=== PATIENT | female | born 2000 | race Caucasian/White ===

== ENCOUNTER 2022-01-06 15:54 | Outpatient (CLI) | payer OTHER, MEDICAID, SELFPAY | END 2022-01-06 15:55 | disposition home or self-care (01) | LOC: NFLDREF 15:55 | PROVIDERS: Visit Provider Obstetrics & Gynecology | DX: Z34.90 Encounter for supervision of normal pregnancy, unspecified, unspecified trimester (principal) | CPT/HCPCS: 84702 ==

== ENCOUNTER 2022-01-08 15:43 | Outpatient (CLI) | payer OTHER, MEDICAID, SELFPAY | END 2022-01-08 15:44 | disposition home or self-care (01) | LOC: NFLDREF 01-09 10:08 | PROVIDERS: Visit Provider Obstetrics & Gynecology | DX: R50.9 Fever, unspecified (principal); R10.9 Unspecified abdominal pain | CPT/HCPCS: 84702; 86900; 86901 ==

== ENCOUNTER 2022-01-11 19:48 | Emergency (ER) | payer OTHER, MEDICAID, SELFPAY ==
[2022-01-11 21:02] VITALS: BP 130/81; PULSE 123; RESP 20; TEMP 36.8; O2SAT 97; BMI 34.0
--- NOTE | 2022-01-11 21:14 | ED.GENADULT ---
HPI - General Adult General Time Seen by Provider: 21:14 Date Seen: 01/11/22 Chief complaint: Abdominal Pain Stated complaint: Fever Abdominal Pain Headaches Time Seen by Provider: 01/11/22 20:41 Source: patient Mode of arrival: ambulatory Limitations: no limitations History of Present Illness HPI narrative: Patient is a 21-year-old female who unfortunately had a miscarriage, and her hCG last checked was diminishing from prior. She see And always Tung. The patient has a 9-month-old baby at home as well, and she is currently pumping at this time. She reports that she has had some temperature today, but has not felt cough, chest pain, abdominal pain of any significance. Does states she has had some abdominal cramping, she is still passing a little bit of blood from her miscarriage. She does not have a fever here in the ED she is slightly elevated her pulse was 123 I recorded about 110. Her O2 sat is excellent at 97% Related Data Home Medications Medication Instructions Recorded Confirmed prenat.vits,harrison,[id number] 1 tab PO QDAY 01/06/22 01/11/22 acetaminophen 500 mg capsule 500 mg PO Q4-6H PRN 01/11/22 01/11/22 ibuprofen 200 mg tablet (Advil) 200 mg PO Q6-8H PRN 01/11/22 01/11/22 Allergies Allergy/AdvReac Type Severity Reaction Status Date / Time No Known Drug Allergies Allergy Verified 01/11/22 21:07 Review of Systems Status of ROS: Reports: 6 or more systems reviewed and unremarkable except as noted in History and below PFSH PFSH Medical History ADHD Anxiety Bleeding in early Chlamydia Collar bone fracture GE reflux Gestational diabetes Gonorrhea Migraine MTHFR deficiency complicating Surgical History H/O dilation and curettage H/O hemorrhoidectomy Social History Smoking Status: Never smoker Exam Narrative: Exam Narrative: Objective: Patient is alert or x3 noncyanotic, cooperative very pleasant Vital signs unremarkable other than elevated pulse of 120 retested about 110, she has have high afebrile O2 sat 97% on room air HEENT is unremarkable neck is supple pulses regular abdomen benign soft nontender extremities are no edema neurologic nonfocal Const: Vital Signs, click to edit/add: Vital Signs - 24 hr 01/11/22 21:02 Temperature 98.3 F Pulse Rate [Left P ulse Oximeter] 123 H Respiratory Rate 20 Blood Pressure [Ri ght Upper Arm] 130/81 Pulse Oximetry 97 Oxygen Delivery Me thod Room Air Course Vital Signs Vital signs: Initial Vital Signs Temperature 98.3 F 01/11/22 21:02 Temperature Source Temporal Artery Scan 01/11/22 21:02 Pulse Rate 123 H 01/11/22 21:02 Respiratory Rate 20 01/11/22 21:02 Blood Pressure 130/81 01/11/22 21:02 Blood Pressure Mean 97 01/11/22 21:02 Blood Pressure Position Semi-Fowlers 01/11/22 21:02 Pulse Oximetry 97 01/11/22 21:02 Oxygen Delivery Method 01/11/22 21:02 Vital Signs Temperature 98.3 F 01/11/22 21:02 Pulse Rate 123 H 01/11/22 21:02 Respiratory Rate 20 01/11/22 21:02 Blood Pressure 130/81 01/11/22 21:02 Pulse Oximetry 97 01/11/22 21:02 Oxygen Delivery Method 01/11/22 21:02 Temperature 98.3 F 01/11/22 21:02 Pulse Rate 123 H 01/11/22 21:02 Respiratory Rate 20 01/11/22 21:02 Blood Pressure 130/81 01/11/22 21:02 Pulse Oximetry 97 01/11/22 21:02 Oxygen Delivery Method 01/11/22 21:02 Medical Decision Making [facility] Narrative Medical decision making narrative: Patient presents with a fever today but does not have a fever now, she may be slightly dehydrated she has been pumping her and feeding her 9-month-old with breast male, she denies any breast pain, rigors chills. She did have a fever today however. It might be reasonable to check a COVID/RSV/influenza test, a heme 4 basic 7, give her 1 L IV fluid as she may have some dehydration causing some of her elevated pulse as well. Would have her see and consult with our Women's Health team in the next 48 hours, sooner problems or concerns she can return to the ED. Addendum: Patient's lab studies look reassuring, she got some fluid, will give her some Toradol for her cramping and headache, recommend calling the [facility] and get a follow-up appointment in the next couple of days. She agrees to this, follow up sooner to the ER as needed. Suspect she has got a component of dehydration as well as miscarriage as mentioned above. Lab Data Labs: Lab Results 01/11/22 01/11/22 Range/Units 21:55 21:55 WBC 9.31 (4.50-11.00) K/uL RBC 4.52 (4.00-5.20) m/uL Hgb 13.0 (12.0-16.0) gm/dL Hct 39.1 (33.0-51.0) % MCV 87 (80-100) fL MCH 29 (26-34) pg MCHC 33 (32-36) gm/dL RDW Coeff of Willard 12.1 (11.5-15.5) % Plt Count 178 (140-440) K/uL Neut % (Auto) 89.1 H (42.0-72.0) % Lymph % (Auto) 4.4 L (20-44) % [place] % (Auto) 6.1 (0.0-11.0) % Eos % (Auto) 0.1 (0.0-7.0) % Baso % (Auto) 0.1 (0.0-3.0) % Neut # (Auto) 8.30 H (1.7-7.0) K/uL Lymph # (Auto) 0.40 L (0.90-2.90) K/uL [place] # (Auto) 0.60 (0.00-0.90) K/UL Eos # (Auto) 0.01 (0.00-0.50) K/uL Baso # (Auto) 0.01 (0.00-0.30) K/uL Abs Immat Gran (auto) 0.02 (0.00-0.30) K/uL Imm/Tot Granulo (auto) 0.2 % Sodium 137 (135-149) mmol/L Potassium 3.8 (3.6-5.1) mmol/L Chloride 105 (96-114) mmol/L Carbon Dioxide 23 (20-32) mmol/L BUN 9 (5-24) mg/dL Creatinine 0.6 (0.5-1.5) mg/dL Estimated Creat Clear 110.98 Estimated GFR 130 ml/min Glucose 105 (60-115) mg/dL Calcium 9.5 (8.4-10.6) mg/dL Discharge Plan Discharge Clinical Impression: Complete miscarriage, Acute dehydration Patient Disposition: Home, Self-Care Condition: Stable Additional Instructions: Rest, fluids, Tylenol as needed, update [facility] tomorrow with symptoms/concerns. Return to ED sooner problems or concerns Activity Level: Light activity Discharge Diet: Regular Prescriptions: No Action prenat.vits,harrison,[id number] Tablet 1 tab PO QDAY acetaminophen 500 mg capsule 500 mg PO Q4-6H PRN ibuprofen [Advil] 200 mg tablet 200 mg PO Q6-8H PRN Follow Up/Referrals: Provider,Not a Local [Referring] - Stand Alone Forms: [facility] Info Instructions
[2022-01-11] MEDS: 0.9 % SODIUM CHLORIDE 1000 ml 1,000 ML 6000 ML IV (22:00)
[2022-01-11 22:04] LABS: Basophils Absolute Auto 0.01 K/uL (0.00-0.30); Basophils Percent Auto 0.1 % (0.0-3.0); Eosinophils Absolute Auto 0.01 K/uL (0.00-0.50); Eosinophils Percent Auto 0.1 % (0.0-7.0); Hematocrit 39.1 % (33.0-51.0); Immature Granulocytes Abs Auto 0.02 K/uL (0.00-0.30); Immature Granulocytes Pct Auto 0.2 %; Lymphocytes Percent Auto 4.4 % (20-44); Mean Corpuscular HGB Conc 33 gm/dL (32-36); Mean Corpuscular Hemoglobin 29 pg (26-34); Mean Corpuscular Volume 87 fL (80-100); Monocytes Percent Auto 6.1 % (0.0-11.0); Neutrophils Percent Auto 89.1 % (42.0-72.0); Platelet Count* 178 K/uL (140-440); RDW Coefficient of Variation % 12.1 % (11.5-15.5); Red Blood Count 4.52 m/uL (4.00-5.20); White Blood Count* 9.31 K/uL (4.50-11.00)
[2022-01-11 22:05] LABS: Slide Review Reflex No
[2022-01-11 22:18] LABS: Chloride* 105 mmol/L (96-114); Sodium* 137 mmol/L (135-149)
[2022-01-11 22:19] LABS: Potassium* 3.8 mmol/L (3.6-5.1)
[2022-01-11 22:21] LABS: Blood Urea Nitrogen* 9 mg/dL (5-24); Carbon Dioxide* 23 mmol/L (20-32); Creatinine* 0.6 mg/dL (0.5-1.5); Est. Creatinine Clearance* 110.98; Estimated Glomerular Filt Rate 130 ml/min
[2022-01-11 22:22] LABS: Calcium* 9.5 mg/dL (8.4-10.6); Glucose* 105 mg/dL (60-115)
[2022-01-11] MEDS: KETOROLAC 30 MG/ML inj IVP (22:39)
== END 2022-01-11 22:51 | disposition home or self-care (01) ==
LOC: ED 21:21
PROVIDERS: Emergency Provider Family Medicine; PCP Obstetrics & Gynecology
DX: O03.9 Complete or unspecified spontaneous abortion without complication (principal); E86.0 Dehydration
CPT/HCPCS: 36415; 80048; 85025; 96374; 99283; 99284; J1885; J7030

== ENCOUNTER 2022-01-16 11:01 | Outpatient (CLI) | payer OTHER, MEDICAID, SELFPAY ==
--- NOTE | 2022-01-16 11:15 | CRLHL7_ITS ---
For Patients: As a result of the Century Cures Act, medical imaging exams and procedure reports are released immediately into your electronic medical record. You may view this report before your referring provider. If you have questions, please contact your health care provider. INDICATION: Check viability COMPARISON: None available. TECHNIQUE: Real-time matos-scale imaging of the pelvis was performed. FINDINGS: Normal uterine contour and echotexture without leiomyoma. The uterus measures 7.2 x 4.2 x 6.2 cm. Normal endometrium measuring 4 millimeters. No intrauterine . The myometrium appears normal. The ovaries are of normal size. Incidental hyperechoic focus within the right ovary measuring 6 millimeters. Normal ovarian follicles are present bilaterally. The right ovary measures 4.4 x 2.2 x 2.3 cm and the left ovary measures 3.4 x 1.4 x 1.4 cm. Normal color Doppler flow to both ovaries. Trace pelvic free fluid. IMPRESSION: No intrauterine or ectopic . Dictated by Aditya Corral MD @ 01/16/2022 12:16:44 PM (Electronically Signed)
== END 2022-01-16 11:02 | disposition home or self-care (01) ==
LOC: US 11:01
PROVIDERS: PCP Obstetrics & Gynecology; Visit Provider Obstetrics & Gynecology
DX: O36.5990 Maternal care for other known or suspected poor fetal growth, unspecified trimester, not applicable or unspecified (principal); Z3A.00 Weeks of gestation of pregnancy not specified
CPT/HCPCS: 76817

== ENCOUNTER 2024-08-28 09:07 | Outpatient (CLI) | payer OTHER, MEDICAID, SELFPAY ==
[2024-08-28 23:14] LABS: Chlamydia DNA Amplified* NOT DETECTED (No Detected); GC DNA Amplified* NOT DETECTED (No Detected)
== END 2024-08-28 09:08 | disposition home or self-care (01) ==
LOC: NFLDUCREF 09:07
PROVIDERS: Visit Provider Physician Assistant Surgical
DX: N89.8 Other specified noninflammatory disorders of vagina (principal); N94.89 Other specified conditions associated with female genital organs and menstrual cycle
CPT/HCPCS: 87086; 87491; 87591